=== PATIENT | female | born 1990 | race Caucasian/White ===

== ENCOUNTER 2020-06-20 12:23 | Outpatient (REF) | payer SELFPAY ==
--- NOTE | 2020-06-19 12:00 | ENDO_PTH ---
PATIENT: Rayne Rubio LOC: [facility] U#:[id number] AGE/SX: 30/F ROOM: RE06/20/[address]: Carol Kenny DO : 1990 BED: DIS: 06/20/2020 SPEC #: [id number] RECD: 06/20/20 13:20 STATUS: SOUIrasema REQ #: [id number] AMANDA: 06/19/20 12:[address]: Carol Kenny DEPT: Surgical Specimen RECD BY: Tania Keen ENTERED: 06/20/20 13:21 SP TYPE: Endo OTHR DR: Unknown,Unknown Tissues: 1 - ENDOCERVICAL BX/CURRETTE Procedures: GROSS AND MICRO LEVEL 4 Comments: [id number]
== END 2020-06-20 12:24 | disposition home or self-care (01) ==
LOC: NCHCN 12:23
PROVIDERS: Visit Provider Obstetrics & Gynecology
DX: R87.810 Cervical high risk human papillomavirus (HPV) DNA test positive (principal); R87.610 Atypical squamous cells of undetermined significance on cytologic smear of cervix (ASC-US); N88.8 Other specified noninflammatory disorders of cervix uteri
CPT/HCPCS: 88305